=== PATIENT | male | born 1955 | race Caucasian/White ===

== ENCOUNTER 2023-11-14 07:16 | Outpatient (RCR) | payer MEDICARE, SELFPAY | END 2023-11-14 23:59 | disposition home or self-care (01) | LOC: RPT 07:16 | PROVIDERS: ATTENDING PHYSICIAN Physician Assistant; FAMILY PHYSICIAN Internal Medicine | DX: Z47.89 Encounter for other orthopedic aftercare (principal); Z73.6 Limitation of activities due to disability | CPT/HCPCS: 97010; 97110; 97140; 97162 ==

== ENCOUNTER → 2023-11-25 15:27 | Outpatient (REF) | payer MEDICARE, SELFPAY | LOC: RAD 15:27 | PROVIDERS: ATTENDING PHYSICIAN Nurse Practitioner Family | DX: J18.9 Pneumonia, unspecified organism (principal) | CPT/HCPCS: 71046 ==

== ENCOUNTER 2023-12-14 13:00 | Outpatient (RCR) | payer MEDICARE, SELFPAY | END 2023-12-14 23:59 | disposition home or self-care (01) | LOC: RPT 13:00 | PROVIDERS: ATTENDING PHYSICIAN Physician Assistant; FAMILY PHYSICIAN Internal Medicine | DX: Z47.89 Encounter for other orthopedic aftercare (principal); M25.511 Pain in right shoulder; Z73.6 Limitation of activities due to disability; Z98.890 Other specified postprocedural states | CPT/HCPCS: 97010; 97110; 97140 ==

== ENCOUNTER 2023-12-29 06:53 | Outpatient (RCR) | payer MEDICARE, SELFPAY | END 2023-12-29 23:59 | disposition home or self-care (01) | LOC: RPT 06:53 | PROVIDERS: ATTENDING PHYSICIAN Physician Assistant; FAMILY PHYSICIAN Internal Medicine | DX: M79.601 Pain in right arm (principal); Z98.890 Other specified postprocedural states; Z73.6 Limitation of activities due to disability | CPT/HCPCS: 97010; 97110; 97140 ==

== ENCOUNTER 2024-02-13 07:49 | Outpatient (RCR) | payer MEDICARE, SELFPAY | END 2024-02-13 23:59 | disposition home or self-care (01) | LOC: RPT 07:49 | PROVIDERS: ATTENDING PHYSICIAN Physician Assistant; FAMILY PHYSICIAN Internal Medicine | DX: M79.601 Pain in right arm (principal); Z98.890 Other specified postprocedural states; Z73.6 Limitation of activities due to disability | CPT/HCPCS: 97010; 97110 ==

== ENCOUNTER 2024-02-20 07:15 | Outpatient (RCR) | payer MEDICARE, SELFPAY | END 2024-02-22 13:47 | disposition home or self-care (01) | LOC: RPT 07:15 | PROVIDERS: ATTENDING PHYSICIAN Physician Assistant; FAMILY PHYSICIAN Internal Medicine | DX: M79.601 Pain in right arm (principal); Z98.890 Other specified postprocedural states; Z73.6 Limitation of activities due to disability | CPT/HCPCS: 97010; 97110 ==

== ENCOUNTER → 2024-05-01 06:28 | Outpatient (REF) | payer MEDICARE, SELFPAY ==
[2024-05-01 07:31] LABS: % Eosinophils 5.4 % (0-6); % Immature Granulocytes 0.5 % (0-0.5); % Lymphocytes 34.6 % (20.5-51.1); % Monocytes 10.9 % (1.7-9.3); % Neutrophils 47.6 % (42.2-75.2); Absolute Basophils 0.1 10^3/uL (0-0.2); Absolute Eosinophils 0.3 10^3/uL (0-0.7); Absolute Lymphocytes 2.1 10^3/uL (1.2-3.4); Absolute Monocytes 0.7 10^3/uL (0.1-0.6); Absolute Neutrophils 2.9 10^3/uL (1.4-6.5); Hematocrit 35.3 % (39.0-52.0); Hemoglobin 12.3 g/dL (13.0-18.0); Mean Corp Hgb Conc. 34.8 g/dL (33.0-37.0); Mean Corpuscular Hgb 29.4 pg (27.0-31.0); Mean Corpuscular Volume 84.2 fL (80.0-94.0); Mean Platelet Volume 9.6 fL (7.4-10.4); Nucleated Red Blood Cells % 0 % (-); Platelet Count 207 10^3/uL (130-400); Red Blood Cell Count 4.19 10^6/uL (4.70-6.10); Red Cell Dist. Width 13.1 % (11.5-14.5); White Blood Cell Count 6.1 10^3/uL (4.8-10.8)
[2024-05-01 07:44] LABS: ALT (SGPT) 23 U/L (0-50); AST (SGOT) 26 U/L (17-59); Albumin 4.4 g/dl (3.5-5.0); Alkaline Phosphatase 93 U/L (38-126); Blood Urea Nitrogen 21 mg/dl (9-20); Calcium 9.6 mg/dl (8.4-10.2); Carbon Dioxide 22 mmol/L (22-30); Chloride 108 mmol/L (98-107); Glucose 101 mg/dl (70-99); HDL Cholesterol 47 mg/dl; LDL Cholesterol, Calculated 86 mg/dl; Potassium 4.3 mmol/L (3.5-5.1); Sodium 143 mmol/L (135-145); Total Bilirubin 0.4 mg/dl (0.2-1.3); Total Cholesterol 153 mg/dl (50-199); Total Protein 6.9 g/dl (6.3-8.2); Triglyceride 100 mg/dl (10-149); Very Low Density Lipoprotein 20 mg/dl (0-30); eGFR > 60.00
[2024-05-01 08:19] LABS: TSH Reflex To Free T4 1.49 uIU/ml (0.47-4.68)
== END ==
LOC: REG 06:28
PROVIDERS: ATTENDING PHYSICIAN Internal Medicine
DX: E03.9 Hypothyroidism, unspecified (principal); E78.5 Hyperlipidemia, unspecified; N40.0 Benign prostatic hyperplasia without lower urinary tract symptoms
CPT/HCPCS: 36415; 80053; 80061; 84443; 85025

== ENCOUNTER → 2024-05-02 09:25 | Outpatient (REF) | payer MEDICARE, SELFPAY ==
[2024-05-02 10:08] LABS: % Basophils 0.8 % (0-2); % Eosinophils 1.8 % (0-6); % Immature Granulocytes 0.6 % (0-0.5); % Lymphocytes 19.6 % (20.5-51.1); % Monocytes 9.4 % (1.7-9.3); % Neutrophils 67.8 % (42.2-75.2); Absolute Basophils 0.1 10^3/uL (0-0.2); Absolute Eosinophils 0.1 10^3/uL (0-0.7); Absolute Lymphocytes 1.4 10^3/uL (1.2-3.4); Absolute Monocytes 0.7 10^3/uL (0.1-0.6); Absolute Neutrophils 4.8 10^3/uL (1.4-6.5); Hematocrit 37.4 % (39.0-52.0); Hemoglobin 12.9 g/dL (13.0-18.0); Mean Corp Hgb Conc. 34.5 g/dL (33.0-37.0); Mean Corpuscular Hgb 29.1 pg (27.0-31.0); Mean Corpuscular Volume 84.4 fL (80.0-94.0); Mean Platelet Volume 9.5 fL (7.4-10.4); Nucleated Red Blood Cells % 0 % (-); Platelet Count 221 10^3/uL (130-400); Red Blood Cell Count 4.43 10^6/uL (4.70-6.10); Red Cell Dist. Width 13.2 % (11.5-14.5); White Blood Cell Count 7.1 10^3/uL (4.8-10.8)
[2024-05-02 11:05] LABS: Iron 151 ug/dl (49-181)
[2024-05-02 11:16] LABS: Percent Saturation 46 % (20-50); Total Iron Binding Capacity 324 ug/dl (261-462)
[2024-05-02 11:35] LABS: TSH Reflex To Free T4 0.64 uIU/ml (0.47-4.68)
[2024-05-02 12:10] LABS: Folate > 20.0 ng/ml (2.76-20); Vitamin B12 456 pg/ml (239-931)
== END ==
LOC: REG 09:25
PROVIDERS: ATTENDING PHYSICIAN Internal Medicine
DX: D64.9 Anemia, unspecified (principal); R26.81 Unsteadiness on feet; E03.9 Hypothyroidism, unspecified
CPT/HCPCS: 36415; 82607; 82728; 82746; 83540; 83550; 84443; 85025; 85045

== ENCOUNTER 2024-06-05 02:24 | Emergency (ER) | payer MEDICARE, SELFPAY ==
[2024-06-05 02:25] VITALS: BP 140/80
--- NOTE | 2024-06-05 02:40 | ED.GENMED ---
History of Present Illness
<FARHAT Glass - Last Filed: 06/05/24 03:49>
General
Chief Complaint: Skin Surface Trauma
Source: patient
Time Seen by Provider: 06/05/24 02:29
History of Present Illness
History of Present Illness:
Patient is a 68 y/o male with PMHx of HTN HLD, GERD, and anxiety presenting for a laceration to his upper lip after a fall this morning. He states he got up to use the bathroom around 01:30am and tripped on the carpet. He states he fell and hit his
face and the back of his head. He denies any LOC. He states there was a small amount of blood right after and it stopped after applying pressure. He denies any current vision changes, dizziness, PRUITT, nausea, neck or back pain. He is not on any blood
thinners.
Past History
<FARHAT Glass - Last Filed: 06/05/24 03:49>
Past History
ED Past Medical History: GERD, Hypercholesterolemia (Lipitor) and Hypothyroidism
ED Past Surgical History: Orthopedic (Left shoulder surgery) and Other (Knee surgery x 4, 2 hernia surgeries, detatched retina)
Social History
Tobacco: Non-smoker
Alcohol: None
Drug: None
Personal:
Living: with family
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
Family History
Family History: Other
Phy Exam
<FARHAT Glass - Last Filed: 06/05/24 03:49>
Physical Exam
Physical Exam:
GENERAL: Alert , in no apparent distress
Head/Face: 2 cm laceration to the upper medial lip through the dermal layer. Does not contain vermilion border. Not through and through. No scalp lumps, bumps, or bruises.
Mouth: Small laceration to the inner upper lip midline. Teeth intact in good repair.
EYE: pupils equal and reactive
Throat: Airway intact, no exudates
NECK: Supple, no significant adenopathy.
CARDIAC: Regular rate and rhythm .
LUNGS: Clear breath sounds bilaterally, no acute respiratory distress, no wheezes/rales/rhonchi
ABDOMEN: Soft, nondistended, nontender
NEUROLOGICAL: Alert and oriented, no focal neuro deficits
MUSCULOSKELETAL: No edema, well perfused. Full ROM of cervical spine. No bony abnormalities to the cervical spine.
PSYCH: Normal and appropriate interaction.
Course
<Arpan Recinos STPA - Last Filed: 06/05/24 03:49>
Orders/Labs/Results
Orders:
Orders
06/05/24 02:47
Tetanus/Diphth/Acelpertussis [Adacel] 0.5 ml IM .ONCE ONE
Vital Signs
Initial and Last Documented VS:
Initial Vital Signs
Temp Pulse Resp BP Pulse Ox
98.1 F 72 22 140/80 97
06/05/24 02:25 06/05/24 02:25 06/05/24 02:25 06/05/24 02:25 06/05/24 02:25
Last Documented Vital Signs
Temp Pulse Resp BP Pulse Ox
98.1 F 72 22 140/80 97
06/05/24 02:25 06/05/24 02:25 06/05/24 02:25 06/05/24 02:25 06/05/24 02:25
<Clare Celestin DO - Last Filed: 06/05/24 03:43>
Orders/Labs/Results
Orders:
Orders
06/05/24 02:47
Tetanus/Diphth/Acelpertussis [Adacel] 0.5 ml IM .ONCE ONE
Vital Signs
Initial and Last Documented VS:
Initial Vital Signs
Temp Pulse Resp BP Pulse Ox
98.1 F 72 22 140/80 97
06/05/24 02:25 06/05/24 02:25 06/05/24 02:25 06/05/24 02:25 06/05/24 02:25
Last Documented Vital Signs
Temp Pulse Resp BP Pulse Ox
98.1 F 72 22 140/80 97
06/05/24 02:25 06/05/24 02:25 06/05/24 02:25 06/05/24 02:25 06/05/24 02:25
Procedures
<FARHAT Glass - Last Filed: 06/05/24 03:49>
Laceration Closure
Upper Medial Lip:
Status of Wound: clean
Size of Wound in cm: 2
Description of Wound Edges: sharp
Preparation: cleaned with saline
Anesthesia: 1% Lidocaine with epi and added Na Bicarb to local
Revision/Debridement: routine- no revision
Wound exploration: explored to base- no FB
Type of Closure: single layer closure
Skin Closure Material: other (5-0 Ethilon)
Number of sutures: 7
<FARHAT Glass - Last Filed: 06/05/24 03:49>
*Pulse Oximetry
Patient hypoxic: no
*EKG
Interpreted by ED Provider?: NA
*Lgsw Interpretation
Rate: Lgsw- N/A
*Critical Care Note
Total Time (30-74mins, 75-104mins- exclusive of procedures): Not Applicable
ED Attending Note
<FARHAT Glass - Last Filed: 06/05/24 03:49>
-
Portions of this chart may have been created with voice recognition software.� Occasional wrong word or��sound alike� substitutions may have occurred due to the inherent limitations of voice recognition software.
<Clare Celestin DO - Last Filed: 06/05/24 03:43>
ED Attending Note
Patient seen and examined by attending physician: Yes
I performed the substantive portion of visit, reviewed & personally made and approve the management plan that is documented in note by myself or VINCENT.: Yes
ED Attending Note:
This is a 68-year-old gentleman who resides at home with his . He states he got up out of bed to go to the bathroom, lost his balance/tripped while walking towards the bathroom, fell and struck his upper lip on either the bedside table or bed
frame, he states he also mildly struck the back of his head, he believes perhaps on the wall. No loss of consciousness, he was able to get up and has been walking about without difficulty.
He takes no anticoagulants.
He denies headache, denies neck nor back pain, no weakness or numbness.
He presents with laceration of his upper lip, midline, just below the nose but does not cross vermilion border and does not involve the nasal ольга nor episode. He denies dental pain or dental injury.
He is unsure as to his last tetanus booster believes this was greater than 10 years ago.
TRAUMA EXAM:
VITAL SIGNS: Vital signs reviewed, cooperative. 68-year-old gentleman appears his stated age, bright and alert, pleasant, appears in no acute distress. Easily communicative. is accompanying.
DISTRESS: No active disease
EYES: Pupils reactive, no orbital trauma
NOSE: No deformity or epistaxis
FACE AND SCALP: No scalp trauma, external canals no blood. There is a 2 cm oblique laceration midline upper lip that is subcutaneous in depth but not through and through. No active bleeding. This laceration does not cross the vermilion border and
does not involve the nasal ольга. There is superficial abrasion of the mucosal surface of the upper lip but is not a through and through laceration. Teeth are intact, nontender. Tongue is intact without abrasion. No facial tenderness nor soft
tissue swelling.
NECK: Supple nontender, full range of motion without difficulty nor pain.
BACK: Back nontender, pelvis stable to compression
RESPIRATORY: No distress, breath sounds normal, no tender chest wall
CARDIAC: No murmur, pulses equal and strong
ABDOMEN: Soft nontender bowel sounds normal
SKIN: Warm and dry, normal color. Good turgor.
EXTREMITIES: Nontender, full range of motion without difficulty nor pain.
NEUROLOGICAL: Alert, oriented, no motor deficits. Ambulatory with steady unaided gait.
PSYCH: Mood affect normal
Upper lip laceration will require suture repair.
Update Tdap.
No evidence of head trauma, no focal neurodeficits, no headache, gait is steady, not maintained on anticoagulants thus no indication for CT of the head.
06/05/2024 0341 AM
Suture repair by PA student under my direct supervision.
Wound care instructions discussed.
Follow-up with PCP for suture removal in 5 to 7 days.
Soft diet.
Discharge Plan
Departure
Patient Disposition: Home (Routine Discharge)
Date of Disposition: 06/05/24
Time of Disposition: 03:40
Patient with high blood pressure during this ER visit?: No
Condition: Good
Discharge Problem:
laceration upper lip
Instructions: Laceration Repair With Stitches (DC)
Prescriptions:
No Action
quetiapine 100 MG tablet
50 mg PO HS
lamotrigine 100 MG tablet extended release 24hr
150 mg PO HS
multivitamin with folic acid [Tab-A-Isabelle] 1 TABLET tablet
1 tab PO DAILY
omeprazole 40 MG capsule,delayed release(DR/EC)
20 mg PO DAILY
metoprolol succinate 25 mg Tablet Extended Release 24 Hr
25 mg PO HS
atorvastatin 20 mg Tablet
20 mg PO DAILY
valsartan 80 mg Tablet
80 mg PO DAILY
famotidine 20 mg Tablet
20 mg PO HS
fluticasone propionate [Flonase Allergy Relief] 50 mcg/actuation [place],Suspension
2 spray INTRANASAL DAILY
levothyroxine 112 mcg Tablet
112 mcg PO DAILY
Interventions
Interventions:
*Risk Screen - Suicide Last Done: 06/05/24 02:25
*General Assessment Last Done: 06/05/24 02:56
*Neglect/Abuse Screening Last Done: 06/05/24 02:25
ED-Skin Assessment Last Done: 06/05/24 02:56
Discharge Date and Time
Print Language: TRINIDADIAN
[2024-06-05] MEDS: ADACEL 0.5 ML IM (02:56)
== END 2024-06-05 03:59 | disposition home or self-care (01) ==
LOC: EMR 02:24
PROVIDERS: EMERGENCY PHYSICIAN Emergency Medicine; FAMILY PHYSICIAN Internal Medicine
DX: S01.511A Laceration without foreign body of lip, initial encounter (principal); W18.09XA Striking against other object with subsequent fall, initial encounter; I10 Essential (primary) hypertension; E78.00 Pure hypercholesterolemia, unspecified; K21.9 Gastro-esophageal reflux disease without esophagitis; F41.9 Anxiety disorder, unspecified; Z23 Encounter for immunization
CPT/HCPCS: 99283; 12011; 90471; 90715

== ENCOUNTER → 2024-07-04 10:19 | Outpatient (REF) | payer MEDICARE, SELFPAY | LOC: PAVMRI 10:19 | PROVIDERS: ATTENDING PHYSICIAN Specialist; FAMILY PHYSICIAN Internal Medicine | DX: M25.512 Pain in left shoulder (principal) | CPT/HCPCS: 73221 ==

== ENCOUNTER 2024-08-14 06:03 | Outpatient (RCR) | payer MEDICARE, SELFPAY | END 2024-08-14 23:59 | disposition home or self-care (01) | LOC: RPT 06:03 | PROVIDERS: ATTENDING PHYSICIAN Specialist; FAMILY PHYSICIAN Internal Medicine | DX: M25.512 Pain in left shoulder (principal); M75.42 Impingement syndrome of left shoulder; Z73.6 Limitation of activities due to disability | CPT/HCPCS: 97010; 97110; 97162 ==

== ENCOUNTER → 2024-08-28 08:31 | Outpatient (REF) | payer MEDICARE, SELFPAY | LOC: MRI 3T 08:31 | PROVIDERS: ATTENDING PHYSICIAN Surgery; PRIMARYCARE PHYSICIAN Internal Medicine | DX: R97.20 Elevated prostate specific antigen [PSA] (principal) | CPT/HCPCS: 72197; A9575 ==

== ENCOUNTER 2024-08-29 06:40 | Outpatient (RCR) | payer MEDICARE, SELFPAY | END 2024-08-29 23:59 | disposition home or self-care (01) | LOC: RPT 06:40 | PROVIDERS: ATTENDING PHYSICIAN Specialist; FAMILY PHYSICIAN Internal Medicine | DX: M25.512 Pain in left shoulder (principal); M75.42 Impingement syndrome of left shoulder; Z73.6 Limitation of activities due to disability | CPT/HCPCS: 97010; 97110 ==

== ENCOUNTER → 2024-09-04 11:25 | Outpatient (REF) | payer MEDICARE, SELFPAY ==
[2024-09-04 16:41] LABS: Urine Albumin Negative (Neg - Trace); Urine Bilirubin Negative (Negative); Urine Character Clear (Clear); Urine Color Straw; Urine Glucose Negative (Negative); Urine Ketone Negative (Negative); Urine Leukocyte 1+ (Negative); Urine Nitrite Negative (Negative); Urine Occult Blood Negative (Negative); Urine Urobilinogen Negative (Neg - 1+)
[2024-09-04 17:18] LABS: Urine Mucus Few; Urine Red Blood Cell 0-2 /HPF (0-2)
== END ==
LOC: CLAB 11:25
PROVIDERS: ATTENDING PHYSICIAN Surgery
DX: N39.0 Urinary tract infection, site not specified (principal)
CPT/HCPCS: 81003; 81015; 87086

== ENCOUNTER → 2024-09-18 10:06 | Outpatient (REF) | payer MEDICARE, SELFPAY | LOC: CLAB 10:06 | PROVIDERS: ATTENDING PHYSICIAN Surgery; FAMILY PHYSICIAN Internal Medicine | DX: R97.20 Elevated prostate specific antigen [PSA] (principal) | CPT/HCPCS: 88305 ==

== ENCOUNTER → 2024-11-07 07:01 | Outpatient (REF) | payer MEDICARE, SELFPAY ==
[2024-11-07 08:08] LABS: % Basophils 0.8 % (0-2); % Eosinophils 2.7 % (0-6); % Immature Granulocytes 1.7 % (0-0.5); % Lymphocytes 23.3 % (20.5-51.1); % Monocytes 7.8 % (1.7-9.3); % Neutrophils 63.7 % (42.2-75.2); Absolute Basophils 0.1 10^3/uL (0-0.2); Absolute Eosinophils 0.3 10^3/uL (0-0.7); Absolute Immature Granulocytes 0.2 10^3/uL (0-0.05); Absolute Lymphocytes 2.6 10^3/uL (1.2-3.4); Absolute Monocytes 0.9 10^3/uL (0.1-0.6); Absolute Neutrophils 7.1 10^3/uL (1.4-6.5); Hemoglobin 13.2 g/dL (13.0-18.0); Mean Corp Hgb Conc. 33.8 g/dL (33.0-37.0); Mean Corpuscular Hgb 29.7 pg (27.0-31.0); Mean Corpuscular Volume 87.8 fL (80.0-94.0); Mean Platelet Volume 8.8 fL (7.4-10.4); Nucleated Red Blood Cells % 0 % (-); Platelet Count 244 10^3/uL (130-400); Red Blood Cell Count 4.44 10^6/uL (4.70-6.10); Red Cell Dist. Width 13.2 % (11.5-14.5); White Blood Cell Count 11.2 10^3/uL (4.8-10.8)
[2024-11-07 08:44] LABS: ALT (SGPT) 26 U/L (0-50); AST (SGOT) 21 U/L (17-59); Albumin 4.6 g/dl (3.5-5.0); Alkaline Phosphatase 101 U/L (38-126); Blood Urea Nitrogen 20 mg/dl (9-20); Calcium 9.5 mg/dl (8.4-10.2); Carbon Dioxide 29 mmol/L (22-30); Chloride 101 mmol/L (98-107); Glucose 99 mg/dl (70-99); HDL Cholesterol 65 mg/dl; LDL Cholesterol, Calculated 87 mg/dl; Potassium 4.6 mmol/L (3.5-5.1); Sodium 141 mmol/L (135-145); Total Bilirubin 0.6 mg/dl (0.2-1.3); Total Cholesterol 176 mg/dl (50-199); Total Protein 7.3 g/dl (6.3-8.2); Triglyceride 121 mg/dl (10-149); Very Low Density Lipoprotein 24 mg/dl (0-30); eGFR > 60.00
[2024-11-07 09:06] LABS: PSA, Total - Screen 4.16 ng/ml (0.0-4.0); TSH Reflex To Free T4 5.08 uIU/ml (0.47-4.68)
[2024-11-07 09:36] LABS: Free T4 0.94 ng/dl (0.78-2.19)
== END ==
LOC: REG 07:01
PROVIDERS: ATTENDING PHYSICIAN Internal Medicine; REFERRING PHYSICIAN Radiology Radiation Oncology
DX: I10 Essential (primary) hypertension (principal); E03.9 Hypothyroidism, unspecified; E78.5 Hyperlipidemia, unspecified; N40.0 Benign prostatic hyperplasia without lower urinary tract symptoms; R26.81 Unsteadiness on feet
CPT/HCPCS: 36415; 80053; 80061; 84439; 84443; 85025; G0103

== ENCOUNTER → 2025-03-23 07:31 | Outpatient (REF) | payer MEDICARE, SELFPAY ==
[2025-03-23 09:05] LABS: PSA, Total - Diagnostic 1.82 ng/ml (0.0-4.0)
== END ==
LOC: REG 07:31
PROVIDERS: ATTENDING PHYSICIAN Radiology Radiation Oncology; FAMILY PHYSICIAN Internal Medicine
DX: C61 Malignant neoplasm of prostate (principal)
CPT/HCPCS: 36415; 84153; 84403

== ENCOUNTER → 2025-04-26 06:57 | Outpatient (REF) | payer MEDICARE, SELFPAY ==
[2025-04-26 08:22] LABS: Hematocrit 38.1 % (39.0-52.0); Hemoglobin 12.9 g/dL (13.0-18.0); Mean Corp Hgb Conc. 33.9 g/dL (33.0-37.0); Mean Corpuscular Volume 87.6 fL (80.0-94.0); Nucleated Red Blood Cells % 0 % (-); Platelet Count 192 10^3/uL (130-400); Red Cell Dist. Width 13.2 % (11.5-14.5)
[2025-04-26 08:59] LABS: ALT (SGPT) 24 U/L (0-50); AST (SGOT) 24 U/L (17-59); Albumin 4.6 g/dl (3.5-5.0); Alkaline Phosphatase 79 U/L (38-126); Blood Urea Nitrogen 23 mg/dl (9-20); Calcium 9.2 mg/dl (8.4-10.2); Carbon Dioxide 26 mmol/L (22-30); Chloride 109 mmol/L (98-107); Glucose 109 mg/dl (70-99); HDL Cholesterol 52 mg/dl; LDL Cholesterol, Calculated 97 mg/dl; Potassium 4.6 mmol/L (3.5-5.1); Sodium 142 mmol/L (135-145); Total Protein 7.4 g/dl (6.3-8.2); Very Low Density Lipoprotein 21 mg/dl (0-30); eGFR > 60.00
== END ==
LOC: REG 06:57
PROVIDERS: ATTENDING PHYSICIAN Internal Medicine
DX: I10 Essential (primary) hypertension (principal); E03.9 Hypothyroidism, unspecified; E78.5 Hyperlipidemia, unspecified
CPT/HCPCS: 36415; 80053; 80061; 84443; 85025

== ENCOUNTER → 2025-09-19 13:54 | Outpatient (REF) | payer MEDICARE, SELFPAY ==
[2025-09-19 16:42] LABS: PSA, Total - Diagnostic 1.24 ng/ml (0.0-4.0)
== END ==
LOC: REG 13:54
PROVIDERS: ATTENDING PHYSICIAN Radiology Radiation Oncology; FAMILY PHYSICIAN Internal Medicine
DX: C61 Malignant neoplasm of prostate (principal)
CPT/HCPCS: 36415; 84153